=== PATIENT | female | born 1995 | race Caucasian/White ===

== ENCOUNTER 2019-05-29 19:32 | Emergency (ER) | payer OTHER ==
[~2019-05-29] VITALS: Ht 152.4 cm; Wt 53.5 kg
--- NOTE | 2019-05-29 20:13 | NUR ---
PT [facility] FOR HEMATURIA AND EPISODE OF FAINTING TODAY; PT AAOX4, -SOB, NAD NOTED, PENDING MD KENT
[2019-05-29 20:35] LABS: APPEARANCE,URINE Cloudy (CLEAR); BILIRUBIN,URINE MODERATE (NEGATIVE); BLOOD, URINE Large Ery/uL (NEGATIVE); COLOR,URINE Brown (YELLOW); KETONES,URINE Trace (NEGATIVE); LEUKOCYTE ESTERASE ,URINE Large (NEGATIVE); NITRITE, URINE Negative (NEGATIVE); PROTEIN,URINE >=300 mg/dl (NEGATIVE); UGLUCOSE Negative (NEGATIVE)
[2019-05-29 20:40] LABS: BASOPHILS # (AUTO) 0.3 /CMM (0.0-0.2); BASOPHILS % (AUTO) 1.7 % (0.0-2.0); EOSINOPHILS % (AUTO) 0.2 % (0.0-6.0); HEMATOCRIT 42 % (33-45); HEMOGLOBIN 13.9 g/dL (11.5-14.8); LYMPHOCYTES # (AUTO) 0.3 /CMM (0.8-4.8); LYMPHOCYTES % (AUTO) 1.9 % (20.0-44.0); MEAN CORPUSCULAR HGB CONC 33 g/dl (31.0-36.0); MEAN CORPUSCULAR VOLUME 88 fL (82-100); MONOCYTES # (AUTO) 0.8 /CMM (0.1-1.30); MONOCYTES % (AUTO) 5.4 % (2.0-12.0); NEUTROPHILS # (AUTO) 13.6 /CMM (1.8-8.9); NEUTROPHILS % (AUTO) 90.8 % (43.0-81.0); PLATELET COUNT (AUTO) 358 /CMM (150-450); RED BLOOD CELL COUNT(AUTO) 4.83 MIL/uL (4.0-5.2)
[2019-05-29] MEDS ORDERED: ONDANSETRON HCL/PF 4 MG/2 ML VIAL ONE ×2 (20:43→22:48)
[2019-05-29] MEDS ORDERED: KETOROLAC TROMETHAMINE 15 MG/ML VIAL ONE (20:43)
[2019-05-29 20:47] LABS: CALCIUM, SERUM 8.8 mg/dL (8.5-10.1); CREATININE 0.8 mg/dL (0.6-1.3); POTASSIUM 3.8 mmol/L (3.5-5.1)
[2019-05-29] MEDS: IV NS 0.9% 1,000 ML BAG IV ONE (20:50)
[2019-05-29] MEDS: ONDANSETRON HCL/PF 4 MG/2 ML VIAL IVP ONE (20:51)
[2019-05-29] MEDS: KETOROLAC TROMETHAMINE INJ 30 MG/ML VIAL IV ONE (20:51)
[2019-05-29] MEDS ORDERED: ACETAMINOPHEN ES 500 MG TABLET ONE (20:52)
[2019-05-29] MEDS: ACETAMINOPHEN 325 MG TABLET PO ONE (20:52)
[2019-05-29 20:53] LABS: BILIRUBIN,DIRECT 0.1 mg/dL (0.0-0.2); BILIRUBIN,TOTAL 0.5 mg/dL (0.2-1.0); TOTAL PROTEIN, SERUM 8.1 g/dL (6.4-8.2)
[2019-05-29 21:31] LABS: RBC,URINE TOO NUMEROUS TO COUN /HPF (0-2); WBC,URINE 51-80 /HPF (0-3)
[2019-05-29 21:32] LABS: BACTERIA,URINE 3+ /HPF (None Seen); SQUAMOUS EPITHELIAL CELL,UR Few /HPF (None Seen)
[2019-05-29] MEDS ORDERED: CEFTRIAXONE 1GM BAG (ER ONLY) 50 ML IV ONE (21:52)
[2019-05-29] MEDS: CEFTRIAXONE 1GM BAG (ER ONLY) 1 GM/50 ML PIGGYBACK IV ONE (22:01)
[2019-05-29] MEDS: ONDANSETRON HCL/PF 4 MG/2 ML VIAL IV ONE (22:56)
[2019-05-29 22:57] VITALS: BP 104/47
--- NOTE | 2019-05-29 23:22 | NUR ---
Patient discharged to home in stable condition. Written and verbal after care instructions given. Patient verbalizes understanding of instruction. IV removed. Catheter intact and site benign. Pressure and 4x4 applied to site. No bleeding noted.
== END 2019-05-29 23:24 | disposition home or self-care (01) ==
LOC: ER 19:36
DX: N12 Tubulo-interstitial nephritis, not specified as acute or chronic (principal); R55 Syncope and collapse
CPT/HCPCS: 36415; 71045; 80048; 80076; 81001; 83605; 83690; 84703; 85025; 87040 ×2; 87077; 87086; 87186; 93005; 96361; 96365; 96375; 99284; J0696; J1885; J2405 ×2; J7030; 81000-TC

== ENCOUNTER 2019-08-11 23:23 | Emergency (ER) | payer OTHER ==
[~2019-08-11] VITALS: Ht 152.4 cm; Wt 52.2 kg
[2019-08-12] MEDS ORDERED: IBUPROFEN 400 MG TABLET PO ONE
--- NOTE | 2019-08-12 00:01 | NUR ---
PT C/C PT STATES "TIGHTNESS IN CHEST WHEN I BREATHE OR TRY AND TAKE A DEEP BREATH" VSS. PT A/O X4. PT AMBULATORY WITH STEADY GAIT. NAD NOTED. RESPIRATIONS EVEN AND UNLABORED. PT ON MONITOR IN BED 1. WILL CONTINUE TO MONITOR.
[2019-08-12] MEDS ORDERED: IBUPROFEN 400 MG TABLET ONE (00:06)
[2019-08-12 00:44] VITALS: BP 106/77
== END 2019-08-12 03:39 | disposition home or self-care (01) ==
LOC: ER 23:26
DX: R07.89 Other chest pain (principal)
CPT/HCPCS: 71045-TC

== ENCOUNTER 2019-08-20 05:09 | Emergency (ER) | payer OTHER ==
[~2019-08-20] VITALS: Ht 152.4 cm; Wt 49.9 kg
[2019-08-20 05:14] VITALS: BP 129/85
== END 2019-08-20 05:29 | disposition home or self-care (01) ==
LOC: ER 05:11
DX: T40.2X1A Poisoning by other opioids, accidental (unintentional), initial encounter (principal); F41.9 Anxiety disorder, unspecified; Y92.89 Other specified places as the place of occurrence of the external cause

== ENCOUNTER 2019-11-22 00:39 | Emergency (ER) | payer OTHER ==
[~2019-11-22] VITALS: Ht 152.4 cm; Wt 49.9 kg
--- NOTE | 2019-11-22 01:02 | NUR ---
AAOX4. AMBULATORY. C/O R SIDED FLANK PAIN X5RS AGO. PT STATES "I THINK I HAVE A UTI", +DYSURIA, AND FREQUENTLY URINATING. PLACED ON MONITOR AND PULSE OX. NO ACUTE DISTRESS NOTED. URINE SENT TO LAB.
[2019-11-22 01:17] LABS: APPEARANCE,URINE Slightly Cloudy (CLEAR); BILIRUBIN,URINE SMALL (NEGATIVE); BLOOD, URINE Small Ery/uL (NEGATIVE); COLOR,URINE Yellow (YELLOW); KETONES,URINE 15 (NEGATIVE); LEUKOCYTE ESTERASE ,URINE Trace (NEGATIVE); NITRITE, URINE Negative (NEGATIVE); PROTEIN,URINE 30 mg/dl (NEGATIVE); UGLUCOSE Negative (NEGATIVE)
[2019-11-22 01:37] VITALS: BP 122/62
--- NOTE | 2019-11-22 01:37 | NUR ---
Patient discharged to home in stable condition. Written and verbal after care instructions given. Patient verbalizes understanding of instruction and RX. pt ambulatory with a steady gait.
[2019-11-22 02:04] LABS: BACTERIA,URINE Few /HPF (None Seen); SQUAMOUS EPITHELIAL CELL,UR Few /HPF (None Seen); WBC,URINE 51-80 /HPF (0-3)
== END 2019-11-22 01:38 | disposition home or self-care (01) ==
LOC: ER 00:45
DX: N39.0 Urinary tract infection, site not specified (principal)
CPT/HCPCS: 81000-TC; 84703-TC; 87086-TC; 87186-TC

== ENCOUNTER 2020-01-15 20:31 | Emergency (ER) | payer OTHER ==
[~2020-01-15] VITALS: Ht 152.4 cm; Wt 48.1 kg
[2020-01-15] MEDS ORDERED: ONDANSETRON HCL/PF 4 MG/2 ML VIAL IVP ONE (21:00)
[2020-01-15] MEDS ORDERED: PANTOPRAZOLE 40 MG VIAL IV ONE (21:00)
[2020-01-15] MEDS ORDERED: IV NS 0.9% 1,000 ML BAG IV ONE (21:00)
[2020-01-15] MEDS ORDERED: ACETAMINOPHEN ES 500 MG TABLET PO ONE (21:00)
--- NOTE | 2020-01-15 21:00 | NUR ---
BIB MOM FOR C/O FLU LIKE SYMPTOM X 1 DAY
[2020-01-15] MEDS ORDERED: ONDANSETRON HCL/PF 4 MG/2 ML VIAL ONE (21:16)
[2020-01-15] MEDS ORDERED: PANTOPRAZOLE 40 MG VIAL ONE (21:16)
[2020-01-15] MEDS ORDERED: ACETAMINOPHEN ES 500 MG TABLET ONE (21:17)
[2020-01-15 21:21] LABS: BASOPHILS % (AUTO) 0.2 % (0.0-2.0); EOSINOPHILS % (AUTO) 0.1 % (0.0-6.0); HEMATOCRIT 38 % (33-45); HEMOGLOBIN 12.5 g/dL (11.5-14.8); LYMPHOCYTES # (AUTO) 0.8 /CMM (0.8-4.8); LYMPHOCYTES % (AUTO) 4.7 % (20.0-44.0); MEAN CORPUSCULAR HGB CONC 33 g/dl (31.0-36.0); MEAN CORPUSCULAR VOLUME 85 fL (82-100); MONOCYTES # (AUTO) 0.9 /CMM (0.1-1.30); MONOCYTES % (AUTO) 5.3 % (2.0-12.0); NEUTROPHILS # (AUTO) 14.8 /CMM (1.8-8.9); NEUTROPHILS % (AUTO) 89.7 % (43.0-81.0); PLATELET COUNT (AUTO) 329 /CMM (150-450); RED BLOOD CELL COUNT(AUTO) 4.49 MIL/uL (4.0-5.2); WHITE BLOOD COUNT (AUTO) 16.5 K/uL (4.3-11.0)
[2020-01-15 21:30] LABS: APPEARANCE,URINE Clear (CLEAR); BILIRUBIN,URINE SMALL (NEGATIVE); BLOOD, URINE Moderate Ery/uL (NEGATIVE); COLOR,URINE Yellow (YELLOW); KETONES,URINE 15 (NEGATIVE); LEUKOCYTE ESTERASE ,URINE Negative (NEGATIVE); NITRITE, URINE Negative (NEGATIVE); PH,URINE 8.5 (5.0-8.0); PROTEIN,URINE 30 mg/dl (NEGATIVE); UGLUCOSE Negative (NEGATIVE)
[2020-01-15 21:37] LABS: ALANINE AMINOTRANSFERASE 17 U/L (12-78); ALBUMIN 3.9 g/dL (3.4-5.0); ALKALINE PHOSPHATASE 82 U/L (46-116); ASPARTATE AMINOTRANSFERASE 15 U/L (15-37); BILIRUBIN,DIRECT 0.2 mg/dL (0.0-0.2); BILIRUBIN,TOTAL 1.2 mg/dL (0.2-1.0); CALCIUM, SERUM 8.6 mg/dL (8.5-10.1); CARBON DIOXIDE 26 mmol/L (21-32); CHLORIDE 102 mmol/L (98-107); CREATININE 0.8 mg/dL (0.6-1.3); GLUCOSE 119 mg/dL (74-106); POTASSIUM 3.3 mmol/L (3.5-5.1); SODIUM SERUM 136 mmol/L (136-145); TOTAL PROTEIN, SERUM 7.7 g/dL (6.4-8.2); UREA NITROGEN, BLOOD 11 mg/dL (7-18)
[2020-01-15 22:16] LABS: BACTERIA,URINE Few /HPF (None Seen); SQUAMOUS EPITHELIAL CELL,UR Few /HPF (None Seen); WBC,URINE 0-2 /HPF (0-3)
--- NOTE | 2020-01-15 22:40 | NUR ---
IV removed. Catheter intact and site benign. Pressure and 4x4 applied to site. No bleeding noted.Patient discharged to home in stable condition. Rx and Written and verbal after care instructions given. Patient verbalizes understanding of instruction.
[2020-01-15 22:53] VITALS: BP 125/61
== END 2020-01-15 22:40 | disposition home or self-care (01) ==
LOC: ER 20:32
DX: F45.8 Other somatoform disorders (principal); R05 Cough; R51 Headache; R50.9 Fever, unspecified; I95.9 Hypotension, unspecified; R11.10 Vomiting, unspecified
CPT/HCPCS: 36415; 80048; 80076; 81001; 84484; 85025; 85730; 87070; 87804 ×2; 87880; 96361; 96374; 96375; 99284; C9113; J2405; J7030; 81000-TC; 86403-TC